=== PATIENT | male | born 1960 | race Caucasian/White ===

== ENCOUNTER 2017-04-12 14:23 | Emergency (ER) | payer BC ==
--- NOTE | 2017-04-12 14:47 | ERNOTE ---
Back Pain ER HPI Presenting Symptoms: injury/pain to back Time Seen by Provider: 04/12/17 14:28 Source: patient Exam Limitations: no limitations Immunizations: IMMUNIZATION HX Immunizations Up to Date Yes Allergies/Adverse Reactions: Allergies No Known Allergies Allergy (Unverified 04/12/17 14:31) Home Medications: HOME MEDICATIONS Cyclobenzaprine HCl [Flexeril] 10 mg PO TID PRN #30 tab 04/12/17 [Last Taken Unknown] Naproxen Sodium [Aleve] 220 mg PO BID 04/12/17 [Last Taken Unknown] Narrative: Patient is not awar of any particular injury but has had left upper back pain for about three weeks. He works out using stationary machine, denies any new exercises or increase in weight level, no numbness or weakness, has been taking aleve with some relieve Location of pain: Reports: upper back, no radiation Recent Injury?: Reports: no Associated Symptoms: Denies: fever/chills, sweating, constipation/incontinence, problems urinating, difficulty walking, numbess/weakness in legs Prior Treament: Denies: recently seen, similar symptoms before Review of Systems - Review of Systems Constitutional: Absent: recent illness ENT: Absent: nose congestion, sore throat Respiratory: Absent: shortness of breath Cardiology: Absent: chest pain Gastrointestinal/Abdominal: Absent: nausea, abdominal pain Genitourinary: Present: no symptoms reported Musculoskeletal: Present: See HPI Neurological: Absent: headache, weakness, numbness - Patient's Past Medical History Patient History - Medical: Other - IBS Patient History - Cardiac/Respiratory: No pertinent hx Patient History - Cancer: No Hx of Cancer Patient History - Surgical Procedures: Orthopedic - knee scopes Patient History - Other: None - Social History Abuse History: No History of abuse Psych History: No pertinent hx Smoking Status: Never smoker Have you smoked in the past 12 months: No Do you dip or chew tobacco: No Alcohol Use: other - 12 pack a week on average Drug Use: none - Immunizations Immunizations Up to Date: Yes Hx Pneumococcal Vaccination: No History of Influenza Vaccine: Yes Physical Exam - Physical Exam General Appearance: Present: wd/wn, alert, no apparent distress Head Exam: Present: normal inspection Neck: Present: normal inspection, nontender, supple, full range of motion Respiratory: Present: no respiratory distress, normal breath sounds, no accessory muscle use, lungs clear Cardiovascular/Chest: Present: regular rate, rhythm, no murmur Back Exam: Present: no vertebral tenderness, muscle spasm - left between spine and scapula and around lateral scapula Extremity Exam: Present: normal inspection, non-tender, normal range of motion, no edema Neurological Exam: Present: alert, oriented, normal mood/affect Skin Exam: Present: normal color, warm/dry ED Progress - Vital Signs Patient's Vital Signs:: I have reviewed the patient's vital signs. Vital Signs: Vital Signs 04/12/17 14:27 Temperature 36.9 C Pulse Rate 71 Respiratory 18 Rate Blood Pressure 128/73 O2 Sat by Pulse 100 Oximetry - X-Ray X-Ray #1 X-Ray: thoracic - no fracture, DDD Interpretation: Reviewed by me - Progress/Reassessment Chief Complaint: Back Pain Progress Note-Subjective: 04/12/17 15:40 discussed results with patient Departure Clinical Impression: Acute thoracic back pain Qualifiers: Back pain laterality: left Qualified Code(s): M54.6 - Pain in thoracic spine - Departure Disposition: Home self-care Condition: Good Instructions: Thoracic Strain, [id number] Additional Instructions: continue using aleve, consider taking it twice a day Referrals: Segundo Vargas DO [Staff Physician] - Prescriptions: Cyclobenzaprine HCl [Flexeril] 10 mg PO TID PRN #30 tab PRN Reason: MUSCLE SPASMS
[2017-04-12 15:51] VITALS: BP 123/85
== END 2017-04-12 15:52 | disposition home or self-care (01) ==
LOC: ER 14:23
DX: M54.6 Pain in thoracic spine (principal)